=== PATIENT | male | born 1940 | race Hispanic/Latino ===

== ENCOUNTER 2018-04-22 14:18 | Emergency (ER) | payer MEDICARE ==
[~2018-04-22 14:18] MED LIST: ACID1TAB4 PO; AZAT50TA PO; CHLO25TA3 PO; CLOP75TA32 PO; DORZ10DR14 OD; DORZ10DR9 OD; FOLI0.8T43 PO; INSLAN SQ; INSU100I15 SQ; LOPE2TAB26 PO; METO50TA18 PO; OMEP40CA37 PO; PRAV20TA4 PO; SIME80TA10 PO; TACR1CAP10 PO; XALA2.5OS OD
[2018-04-22 14:27] LABS: BASOPHILS % (AUTO) 0.7 % (0.0-5.0); EOSINOPHILS % (AUTO) 0.3 % (0.0-8.0); HEMATOCRIT 37.5 % (42-54); LYMPHOCYTES % (AUTO) 6.6 % (21.0-51.0); MEAN CORPUSCULAR HGB CONC 34.2 g/dL (32.0-36.0); MEAN CORPUSCULAR VOLUME 87.6 fL (79-99); MONOCYTES % (AUTO) 9.4 % (3.0-13.0); NUCLEATED RED BLOOD CELLS 0.1 % (0.0-0.19); PLATELET COUNT (AUTO) 175 K/uL (130-400); RED BLOOD CELL COUNT(AUTO) 4.28 MIL/uL (4.50-6.20)
[2018-04-22 15:04] LABS: CREATININE 1.9 mg/dL (0.5-1.5); POTASSIUM 4.1 mmol/L (3.5-5.1)
[2018-04-22 15:11] LABS: ALBUMIN 3.4 g/dL (3.5-5.0); BILIRUBIN,TOTAL 0.4 mg/dL (0.2-1.0); TOTAL PROTEIN, SERUM 8.1 g/dL (6.0-8.3)
== END 2018-04-22 16:39 | disposition home or self-care (01) ==
LOC: EDH 14:18
DX: E87.5 Hyperkalemia (principal); I10 Essential (primary) hypertension; E78.5 Hyperlipidemia, unspecified; I25.810 Atherosclerosis of coronary artery bypass graft(s) without angina pectoris; E11.9 Type 2 diabetes mellitus without complications; Z94.0 Kidney transplant status; Z95.1 Presence of aortocoronary bypass graft
CPT/HCPCS: 36415; 80053; 85025; 93005

== ENCOUNTER → 2019-03-24 | Outpatient (CLI) | payer MEDICARE ==
[~2019-03-24] MED LIST changes: +CVS B12 PO; +FOLIC ACID PO; +FURO20TA4 PO; +INSU100C6 SQ; +INSU100V12 SQ; +MAGN250T10 PO; +OMEP40CA13 PO; -OMEP40CA37 PO; +RENAVITE PO; +ZENPEP DR PO
== END | disposition home or self-care (01) ==
LOC: SHCH 13:45
PROVIDERS: ATTEND Internal Medicine Cardiovascular Disease
DX: I73.9 Peripheral vascular disease, unspecified (principal); I87.2 Venous insufficiency (chronic) (peripheral)
CPT/HCPCS: 93925; 93970

== ENCOUNTER → 2019-06-21 | Outpatient (CLI) | payer MEDICARE ==
[~2019-06-21] MED LIST changes: -ACID1TAB4 PO; -CHLO25TA3 PO; -DORZ10DR14 OD; -DORZ10DR9 OD; -FOLI0.8T43 PO; -INSLAN SQ; -INSU100I15 SQ; -LOPE2TAB26 PO; -SIME80TA10 PO; -XALA2.5OS OD
== END | disposition home or self-care (01) ==
LOC: SHCH 09:30
PROVIDERS: ATTEND Internal Medicine Cardiovascular Disease
DX: I70.203 Unspecified atherosclerosis of native arteries of extremities, bilateral legs (principal)
CPT/HCPCS: 93925

== ENCOUNTER → 2019-10-18 | Outpatient (CLI) | payer MEDICARE | END | disposition home or self-care (01) | LOC: SHCH 07:53 | PROVIDERS: ATTEND Internal Medicine Cardiovascular Disease | DX: I73.9 Peripheral vascular disease, unspecified (principal) | CPT/HCPCS: 93925 ==

== ENCOUNTER 2019-10-31 06:14 | Day surgery (SDC) | payer MEDICARE ==
[~2019-10-31] VITALS: Ht 167.6 cm; Wt 73.1 kg
[2019-10-31] VITALS (20 sets, daily range): BP systolic 125–179; BP diastolic 56–78
[~2019-10-31 06:14] MED LIST changes: +ASPI-555 PO; +BRIM15OS OU; -CVS B12 PO; +DORZ10DR14 OU; -FURO20TA4 PO; +LATA7.5D OU; -MAGN250T10 PO; +PATI8.4P PO; -TACR1CAP10 PO; +TACR1GRA PO; +VITAMIN B12 PO; +VITAMIN D3 PO; -ZENPEP DR PO
[2019-10-31] MEDS ORDERED: SODIUM CHLORIDE 0.9% 1000ML 1,000 ML IV ONE (06:42)
[2019-10-31 06:49] LABS: BASOPHILS % (AUTO) 0.9 % (0.0-5.0); EOSINOPHILS % (AUTO) 0.4 % (0.0-8.0); HEMATOCRIT 35.7 % (42-54); LYMPHOCYTES % (AUTO) 12.5 % (21.0-51.0); MEAN CORPUSCULAR HEMOGLOBIN 28.3 pg (27.0-33.0); MEAN CORPUSCULAR HGB CONC 32.2 g/dL (32.0-36.0); MEAN CORPUSCULAR VOLUME 87.7 fL (79-99); MONOCYTES % (AUTO) 11.2 % (3.0-13.0); NEUTROPHILS % (AUTO) 74.8 % (40.0-77.0); PLATELET COUNT (AUTO) 168 K/uL (130-400); RED BLOOD CELL COUNT(AUTO) 4.07 MIL/uL (4.50-6.20); RED CELL DISTRIBUTION WIDTH 17.5 % (11.0-15.5); WHITE BLOOD COUNT (AUTO) 4.6 K/uL (4.8-10.8)
[2019-10-31 06:53] LABS: APPEARANCE,URINE Clear (CLEAR); BILIRUBIN,URINE Negative (NEGATIVE); COLOR,URINE Yellow (YELLOW); GLUCOSE, URINE (UA) Negative (NEGATIVE); KETONES,URINE Negative (NEGATIVE); LEUKOCYTE ESTERASE ,URINE Negative (NEGATIVE); NITRATE,URINE Negative (NEGATIVE); OCCULT BLOOD,URINE Negative (NEGATIVE); PROTEIN,URINE POS 1+ mg/dL (NEGATIVE)
[2019-10-31 07:06] LABS: CREATININE 1.7 mg/dL (0.5-1.5); POTASSIUM 4.9 mmol/L (3.5-5.1)
[2019-10-31 07:09] LABS: INR 0.92 (0.85-1.15)
[2019-10-31 07:19] LABS: BACTERIA,URINE Rare /HPF (None Seen); RBC,URINE 0-1 /HPF (0-1); SQUAMOUS EPITHELIAL CELL,UR Rare /HPF (0-2); WBC,URINE 0-1 /HPF (0-1)
[2019-10-31] MEDS ORDERED: FENTANYL CITRATE PF 50 MCG/1 ML 2ML VIAL ONE (07:49)
[2019-10-31] MEDS ORDERED: IODIXANOL 320 MG/ML 100 ML VIAL ONE (07:49)
[2019-10-31] MEDS ORDERED: HEPARIN SODIUM 1000UNIT/ML 10ML VIAL ONE (07:49)
[2019-10-31] MEDS ORDERED: NITROGLYCERIN 2 MG/VIAL VIAL IV ONE (07:49)
[2019-10-31] MEDS ORDERED: MIDAZOLAM HCL 1 MG/ML 2ML VIAL ONE (07:49)
[2019-10-31] MEDS ORDERED: LIDOCAINE HCL 2% 20ML ONE (07:50)
[2019-10-31] MEDS ORDERED: SODIUM CHLORIDE 0.9% 1000ML 1,000 ML IV SCH (09:28)
[2019-10-31] MEDS ORDERED: GLUCAGON 1MG KIT 1 MG ML IM PRN (09:30)
[2019-10-31] MEDS ORDERED: NITROGLYCERIN 0.4 MG SL TAB SL PRN (09:30)
[2019-10-31] MEDS ORDERED: DEXTROSE 50%-WATER 50 ML DISP.SYRIN IV PRN (09:30)
[2019-10-31] MEDS ORDERED: HYDRALAZINE HCL 20 MG/ML VIAL IV PRN (09:30)
[2019-10-31] MEDS ORDERED: METOPROLOL TARTRATE 1 MG/ML 5ML VIAL IV PRN (09:30)
[2019-10-31] MEDS ORDERED: ATROPINE SULFATE 0.1 MG/ML 10 ML SYG IVP ONE (11:15)
[2019-10-31] MEDS ORDERED: INSULIN HUMULIN R 100 UNIT/ML 3ML SQ SCH (11:30)
== END 2019-10-31 15:00 | disposition home or self-care (01) ==
LOC: DAH 06:14
PROVIDERS: ATTEND Internal Medicine Cardiovascular Disease
DX: I70.213 Atherosclerosis of native arteries of extremities with intermittent claudication, bilateral legs (principal); I25.10 Atherosclerotic heart disease of native coronary artery without angina pectoris; I10 Essential (primary) hypertension; E78.5 Hyperlipidemia, unspecified; E11.9 Type 2 diabetes mellitus without complications; Z95.1 Presence of aortocoronary bypass graft; Z94.0 Kidney transplant status; Z98.890 Other specified postprocedural states; Z79.4 Long term (current) use of insulin; Z79.82 Long term (current) use of aspirin; Z79.01 Long term (current) use of anticoagulants; Z79.899 Other long term (current) drug therapy
CPT/HCPCS: 36415; 37226; 71045; 75710; 80048; 81001; 82948 ×2; 85025; 85610; 85730; 93005; A4215; A4216; A4221; A4223 ×3; A4606; A4657; A4663; A6260; A6402; C1725; C1769 ×2; C1874; C1893; C1894 ×2; J0360; J1644 ×2; J2250; J3010; J3490 ×2; J7030; Q9967; 99156; 99157; J0461

== ENCOUNTER → 2020-08-14 | Outpatient (CLI) | payer MEDICARE ==
[~2020-08-14] MED LIST changes: -ASPI-555 PO; +ASPI-556 PO
== END | disposition home or self-care (01) ==
LOC: SHCH 12:23
PROVIDERS: ATTEND Internal Medicine Cardiovascular Disease
DX: I07.1 Rheumatic tricuspid insufficiency (principal); R55 Syncope and collapse; I20.9 Angina pectoris, unspecified; R06.09 Other forms of dyspnea; I73.9 Peripheral vascular disease, unspecified; I65.23 Occlusion and stenosis of bilateral carotid arteries; E78.5 Hyperlipidemia, unspecified; E11.9 Type 2 diabetes mellitus without complications
CPT/HCPCS: 93306; 93356; 93925

== ENCOUNTER 2020-09-13 05:47 | Day surgery (SDC) | payer MEDICARE ==
[2020-09-11 11:01] LABS: BASOPHILS % (AUTO) 0.9 % (0.0-5.0); EOSINOPHILS % (AUTO) 0.4 % (0.0-8.0); HEMATOCRIT 36.3 % (42-54); LYMPHOCYTES % (AUTO) 14.3 % (21.0-51.0); MEAN CORPUSCULAR HEMOGLOBIN 29.1 pg (27.0-33.0); MEAN CORPUSCULAR HGB CONC 33.1 g/dL (32.0-36.0); MEAN CORPUSCULAR VOLUME 88.1 fL (79-99); MONOCYTES % (AUTO) 11.3 % (3.0-13.0); NEUTROPHILS % (AUTO) 72.7 % (40.0-77.0); PLATELET COUNT (AUTO) 164 K/uL (130-400); RED BLOOD CELL COUNT(AUTO) 4.12 MIL/uL (4.50-6.20); WHITE BLOOD COUNT (AUTO) 4.7 K/uL (4.8-10.8)
[2020-09-11 11:16] LABS: CREATININE 1.6 mg/dL (0.5-1.5)
[2020-09-11 12:07] LABS: INR 1.01 (0.85-1.15)
[2020-09-11 12:09] LABS: PARTIAL THROMBOPLASTIN TIME 29.3 SEC (26.3-35.5)
[2020-09-11 12:13] VITALS: BP 150/70
[2020-09-13] VITALS (15 sets, daily range): BP systolic 142–181; BP diastolic 41–74
[~2020-09-13] VITALS: Ht 172.7 cm; Wt 71.7 kg
[~2020-09-13 05:47] MED LIST changes: -OMEP40CA13 PO; +OMEP40CA21 PO
[2020-09-13] MEDS ORDERED: 0.9%NACL 1000ML 1,000 ML IV ONE (06:59)
[2020-09-13] MEDS ORDERED: IODIXANOL 320 MG/ML 100 ML VIAL ONE (07:07)
[2020-09-13] MEDS ORDERED: NITROGLYCERIN 2 MG VIAL IV ONE (07:07)
[2020-09-13] MEDS ORDERED: LIDOCAINE HCL 400MG/20ML VIAL ONE (07:07)
[2020-09-13] MEDS ORDERED: HEPARIN 10,000 UNIT/10ML (1,000 UNIT/ML) VIAL ONE (07:07)
[2020-09-13] MEDS ORDERED: MIDAZOLAM HCL 1 MG/ML 2ML VIAL ONE (07:07)
[2020-09-13] MEDS ORDERED: FENTANYL CITRATE PF 50 MCG/1 ML 2ML VIAL ONE (07:07)
[2020-09-13] MEDS ORDERED: DEXTROSE 50%-WATER 50 ML DISP.SYRIN IV PRN (08:30)
[2020-09-13] MEDS ORDERED: NITROGLYCERIN 0.4 MG SL TAB SL PRN (08:30)
[2020-09-13] MEDS ORDERED: METOPROLOL TARTRATE 1 MG/ML 5ML VIAL IV PRN (08:30)
[2020-09-13] MEDS ORDERED: 0.9%NACL 1000ML 1,000 ML IV SCH (08:30)
[2020-09-13] MEDS ORDERED: HYDRALAZINE 20MG/ML VIAL IV PRN (08:30)
[2020-09-13] MEDS ORDERED: GLUCAGON 1MG KIT 1 MG ML IM PRN (08:30)
[2020-09-13] MEDS ORDERED: ATROPINE 1MG SYG IVP ONE (08:54)
[2020-09-13] MEDS ORDERED: INSULIN HUMULIN R 100 UNIT/ML 3ML SQ SCH (11:30)
== END 2020-09-13 13:45 | disposition home or self-care (01) ==
LOC: DAH 05:47 → DAHIP 05:47 → UNDOADMOB 05:47 → EDSTATUS 10:00 → DAH 13:45
PROVIDERS: ATTEND Internal Medicine Cardiovascular Disease
DX: I70.213 Atherosclerosis of native arteries of extremities with intermittent claudication, bilateral legs (principal); E11.51 Type 2 diabetes mellitus with diabetic peripheral angiopathy without gangrene; E11.22 Type 2 diabetes mellitus with diabetic chronic kidney disease; I12.9 Hypertensive chronic kidney disease with stage 1 through stage 4 chronic kidney disease, or unspecified chronic kidney disease; N18.4 Chronic kidney disease, stage 4 (severe); E11.59 Type 2 diabetes mellitus with other circulatory complications; I87.323 Chronic venous hypertension (idiopathic) with inflammation of bilateral lower extremity; E66.9 Obesity, unspecified; I25.10 Atherosclerotic heart disease of native coronary artery without angina pectoris; E78.5 Hyperlipidemia, unspecified; Z79.899 Other long term (current) drug therapy; Z79.01 Long term (current) use of anticoagulants; Z79.82 Long term (current) use of aspirin; Z79.4 Long term (current) use of insulin; Z98.49 Cataract extraction status, unspecified eye; Z95.5 Presence of coronary angioplasty implant and graft; Z68.24 Body mass index [BMI] 24.0-24.9, adult
CPT/HCPCS: 36247; 36415; 71045; 75716; 80048; 82948 ×2; 85025; 85610; 85730; 93005; A4215; A4216; A4221; A4222; A4223 ×3; A4606; A4663; C1769; C1894 ×2; J1644; J2250; J3010; J3490 ×2; J7030; Q9967; 99156; 99157; J0461

== ENCOUNTER → 2020-12-25 | Outpatient (CLI) | payer MEDICARE ==
[~2020-12-25] MED LIST changes: -INSU100C6 SQ; -PATI8.4P PO
== END | disposition home or self-care (01) ==
LOC: SHCH 08:26
PROVIDERS: ATTEND Internal Medicine Cardiovascular Disease
DX: I70.293 Other atherosclerosis of native arteries of extremities, bilateral legs (principal)
CPT/HCPCS: 93925

== ENCOUNTER 2022-04-30 12:53 | Inpatient (IN) | payer MEDICARE ==
[~2022-04-30] VITALS: Ht 167.6 cm; Wt 72.2 kg
[2022-04-30 13:14] LABS: HEMATOCRIT 32.5 % (42-54); MEAN CORPUSCULAR HEMOGLOBIN 28.8 pg (27.0-33.0); MEAN CORPUSCULAR HGB CONC 33.5 g/dL (32.0-36.0); MONOCYTES % (AUTO) 10.8 % (3.0-13.0); NEUTROPHILS % (AUTO) 76.8 % (40.0-77.0); PLATELET COUNT (AUTO) 196 K/uL (130-400); RED BLOOD CELL COUNT(AUTO) 3.78 MIL/uL (4.50-6.20); RED CELL DISTRIBUTION WIDTH 16.3 % (11.0-15.5)
[2022-04-30 13:22] LABS: CREATININE 2.4 mg/dL (0.5-1.5); POTASSIUM 4.8 mmol/L (3.5-5.1)
[2022-04-30 13:26] LABS: ALBUMIN 2.5 g/dL (3.5-5.0); TOTAL PROTEIN, SERUM 7.1 g/dL (6.0-8.3)
[2022-04-30 13:42] LABS: B-TYPE NATRIURETIC PEPTIDE 618 pg/mL (0-100)
[2022-04-30] MEDS ORDERED: FUROSEMIDE 40MG VIAL IV ONE (14:00)
[2022-04-30] MEDS ORDERED: LACTULOSE 20 GM/30 ML UDCUP PO PRN (20:30)
[2022-04-30] MEDS ORDERED: GUAIFENESIN-DM 200/20 MG 10 ML PO PRN (20:30)
[2022-04-30] MEDS ORDERED: DiphenhydrAMINE HCL 50 MG/ML VIAL IV PRN (20:30)
[2022-04-30] MEDS ORDERED: LIDOCAINE HCL-MPF 1% 2ML VIAL IV PRN (20:30)
[2022-04-30] MEDS ORDERED: DEXTROSE 50%-WATER 50 ML DISP.SYRIN IV PRN (20:30)
[2022-04-30] MEDS ORDERED: MAGNESIUM 2GM PREMIX 50ML 50 ML IV PRN (20:30)
[2022-04-30] MEDS ORDERED: ACETAMINOPHEN 325 MG TAB PO PRN ×2 (20:30)
[2022-04-30] MEDS ORDERED: KCL 20 MEQ ERTAB PO PRN (20:30)
[2022-04-30] MEDS ORDERED: GLUCAGON 1MG KIT 1 MG ML IM PRN (20:30)
[2022-04-30] MEDS ORDERED: MAG/ALUM/SIMETH 30 ML UDCUP PO PRN (20:30)
[2022-04-30] MEDS ORDERED: POTASSIUM CHLORIDE 10% ELIXIR 20 MEQ/15 ML UDCUP PO PRN (20:30)
[2022-04-30] MEDS ORDERED: POTASSIUM CHLORIDE 20MEQ/100ML 100 ML IV PRN (20:30)
[2022-04-30] MEDS ORDERED: ONDANSETRON 4MG INJ IV PRN (20:30)
[2022-04-30] MEDS ORDERED: NITROGLYCERIN 0.4 MG SL TAB SL PRN (20:30)
[2022-04-30] MEDS ORDERED: DIPHENHYDRAMINE HCL 25 MG CAPSULE PO PRN (20:30)
[2022-04-30] MEDS ORDERED: HEPARIN 5,000 UNIT VIAL SQ SCH (21:00)
[2022-04-30] MEDS: FAMOTIDINE 20MG TAB PO SCH (21:40)
[2022-04-30] MEDS: FUROSEMIDE 40MG VIAL IV SCH (21:40)
[2022-04-30] MEDS: ATORVASTATIN 40 MG TABLET PO SCH (21:40)
[2022-04-30] MEDS: INSULIN HUMULIN R 100 UNIT/ML 3ML SQ SCH (21:52)
[2022-04-30] MEDS ORDERED: AMLO-257 PO (23:38)
[2022-04-30] MEDS ORDERED: MAGN250T35 PO (23:38)
[2022-04-30 23:55] LABS: APPEARANCE,URINE CLEAR (CLEAR); BILIRUBIN,URINE NEGATIVE (NEGATIVE); COLOR,URINE COLORLESS (YELLOW); GLUCOSE, URINE (UA) 50 mg/dL (NEGATIVE); KETONES,URINE NEGATIVE (NEGATIVE); LEUKOCYTE ESTERASE ,URINE NEGATIVE Leu/uL (NEGATIVE); NITRATE,URINE NEGATIVE (NEGATIVE); PROTEIN,URINE 100 mg/dL (NEGATIVE); UROBILINOGEN,URINE 0.2 mg/dL (0.2-1.0)
[2022-05-01 00:08] LABS: MUCUS,URINE RARE LPF (None Seen); SQUAMOUS EPITHELIAL CELL,UR FEW /HPF (0-2); WBC,URINE 0-1 /HPF (0-1)
[2022-05-01 01:05] VITALS: BP 171/79
[2022-05-01 04:37] LABS: BASOPHILS % (AUTO) 1.3 % (0.0-5.0); EOSINOPHILS % (AUTO) 1.1 % (0.0-8.0); HEMATOCRIT 29.8 % (42-54); MEAN CORPUSCULAR HEMOGLOBIN 29.1 pg (27.0-33.0); MEAN CORPUSCULAR HGB CONC 34.9 g/dL (32.0-36.0); MEAN CORPUSCULAR VOLUME 83.5 fL (79-99); NEUTROPHILS % (AUTO) 70.4 % (40.0-77.0); PLATELET COUNT (AUTO) 172 K/uL (130-400); RED BLOOD CELL COUNT(AUTO) 3.57 MIL/uL (4.50-6.20); RED CELL DISTRIBUTION WIDTH 15.8 % (11.0-15.5); WHITE BLOOD COUNT (AUTO) 5.4 K/uL (4.8-10.8)
[2022-05-01 05:02] VITALS: BP 177/81
[2022-05-01 05:23] LABS: CREATININE 2.6 mg/dL (0.5-1.5); MAGNESIUM 1.7 mg/dL (1.80-2.40); PHOSPHORUS 3.5 mg/dL (2.5-4.9); POTASSIUM 4.1 mmol/L (3.5-5.1)
[2022-05-01 05:24] LABS: B-TYPE NATRIURETIC PEPTIDE 696 pg/mL (0-100)
[2022-05-01] MEDS: INSULIN HUMULIN R 100 UNIT/ML 3ML SQ SCH ×4 (05:45→20:26)
[2022-05-01 08:00] VITALS: BP 173/73
[2022-05-01] MEDS ORDERED: FAMOTIDINE 20MG VIAL IV SCH (09:00)
[2022-05-01] MEDS: FAMOTIDINE 20MG TAB PO SCH (09:49)
[2022-05-01] MEDS: ASPIRIN 81MG CHEW TAB PO SCH (09:49)
[2022-05-01] MEDS: FUROSEMIDE 40MG VIAL IV SCH ×2 (09:49→18:37)
[2022-05-01] MEDS: FOLIC ACID 1 MG TABLET PO SCH (11:10)
[2022-05-01] MEDS: AZATHIOPRINE 50 MG TAB PO SCH (11:30)
[2022-05-01] MEDS: TACROLIMUS 1 MG CAPSULE PO SCH ×2 (11:49→20:27)
[2022-05-01] MEDS: METOPROLOL TARTRATE 50 MG TAB PO SCH ×2 (11:50→20:27)
[2022-05-01] MEDS: AMLODIPINE 5 MG TAB PO SCH (11:50)
[2022-05-01 12:00] VITALS: BP 162/68
[2022-05-01] MEDS: HEPARIN 5,000 UNIT VIAL SQ SCH ×2 (14:58→22:18)
[2022-05-01 16:00] VITALS: BP 152/54
[2022-05-01] MEDS ORDERED: ACETAMINOPHEN WITH CODEINE 1 TAB TAB PO PRN (16:30)
[2022-05-01 20:00] VITALS: BP 146/51
[2022-05-01] MEDS: LATANOPROST 2.5 ML DROPS OU SCH (20:27)
[2022-05-01] MEDS: BRIMONIDINE TARTRATE OU SCH (20:27)
[2022-05-01] MEDS: ATORVASTATIN 40 MG TABLET PO SCH (20:27)
[2022-05-01] MEDS ORDERED: METOPROLOL TARTRATE 50 MG TAB PO SCH (21:00)
[2022-05-02] VITALS: BP 105/53
[2022-05-02 04:00] VITALS: BP 142/56
[2022-05-02 04:56] LABS: BASOPHILS % (AUTO) 1.6 % (0.0-5.0); EOSINOPHILS % (AUTO) 1.9 % (0.0-8.0); HEMATOCRIT 27.5 % (42-54); LYMPHOCYTES % (AUTO) 19.5 % (21.0-51.0); MEAN CORPUSCULAR HEMOGLOBIN 29.2 pg (27.0-33.0); MEAN CORPUSCULAR HGB CONC 34.2 g/dL (32.0-36.0); MEAN CORPUSCULAR VOLUME 85.4 fL (79-99); MONOCYTES % (AUTO) 14.8 % (3.0-13.0); NEUTROPHILS % (AUTO) 61.7 % (40.0-77.0); PLATELET COUNT (AUTO) 152 K/uL (130-400); RED BLOOD CELL COUNT(AUTO) 3.22 MIL/uL (4.50-6.20); RED CELL DISTRIBUTION WIDTH 16.2 % (11.0-15.5); WHITE BLOOD COUNT (AUTO) 4.3 K/uL (4.8-10.8)
[2022-05-02 05:19] LABS: ALBUMIN 2.1 g/dL (3.5-5.0); CREATININE 2.8 mg/dL (0.5-1.5); MAGNESIUM 1.8 mg/dL (1.80-2.40); POTASSIUM 4.3 mmol/L (3.5-5.1); TOTAL PROTEIN, SERUM 6.1 g/dL (6.0-8.3)
[2022-05-02] MEDS: INSULIN HUMULIN R 100 UNIT/ML 3ML SQ SCH ×4 (05:29→21:00)
[2022-05-02 05:31] LABS: B-TYPE NATRIURETIC PEPTIDE 169 pg/mL (0-100)
[2022-05-02] MEDS: FUROSEMIDE 40MG VIAL IV SCH (06:00)
[2022-05-02] MEDS: HEPARIN 5,000 UNIT VIAL SQ SCH ×3 (06:41→21:10)
[2022-05-02 07:30] VITALS: BP 132/47
[2022-05-02] MEDS: METOPROLOL TARTRATE 50 MG TAB PO SCH ×2 (09:00→21:10)
[2022-05-02] MEDS ORDERED: Vitamin B Complex/Vit C/Folic Acid PO SCH (09:00)
[2022-05-02] MEDS ORDERED: CLOPIDOGREL 75MG TAB PO SCH (09:00)
[2022-05-02] MEDS ORDERED: REGADENOSON 0.4 MG/5 ML PF SYG IVP SCH (09:00)
[2022-05-02] MEDS ORDERED: AZATHIOPRINE 50 MG TAB PO SCH (09:00)
[2022-05-02] MEDS ORDERED: CYANOCOBALAMIN (VITAMIN B-12) 1,000 MCG TABLET PO SCH (09:00)
[2022-05-02] MEDS ORDERED: VIT D 2000 UNIT PO SCH (09:00)
[2022-05-02] MEDS ORDERED: INSULIN GLARGINE 100 UNITS/ML 10 ML VIAL SQ SCH (09:00)
[2022-05-02] MEDS: BRIMONIDINE TARTRATE OU SCH ×2 (09:00→21:15)
[2022-05-02 12:03] VITALS: BP 145/42
[2022-05-02] MEDS: FAMOTIDINE 20MG TAB PO SCH (13:45)
[2022-05-02] MEDS: AZATHIOPRINE 50 MG TAB PO SCH (13:45)
[2022-05-02] MEDS: ASPIRIN 81MG CHEW TAB PO SCH (13:45)
[2022-05-02] MEDS: FOLIC ACID 1 MG TABLET PO SCH (13:46)
[2022-05-02] MEDS: TACROLIMUS 1 MG CAPSULE PO SCH ×2 (13:46→21:10)
[2022-05-02] MEDS: AMLODIPINE 5 MG TAB PO SCH (13:47)
[2022-05-02 15:50] VITALS: BP 178/72
[2022-05-02 20:00] VITALS: BP 152/67
[2022-05-02] MEDS: ATORVASTATIN 40 MG TABLET PO SCH (21:10)
[2022-05-02] MEDS: LATANOPROST 2.5 ML DROPS OU SCH (21:15)
== END 2022-05-02 21:45 | disposition home or self-care (01) | DRG 291 ==
LOC: EDH 12:53 → EDHIP 20:15 → 4DH 05-01 01:11 → 4AH 05-02 16:05
PROVIDERS: ADMIT Hospitalist; ATTEND Hospitalist
DX: I13.0 Hypertensive heart and chronic kidney disease with heart failure and stage 1 through stage 4 chronic kidney disease, or unspecified chronic kidney disease (principal); I50.33 Acute on chronic diastolic (congestive) heart failure; J96.01 Acute respiratory failure with hypoxia; N17.9 Acute kidney failure, unspecified; N18.4 Chronic kidney disease, stage 4 (severe); D84.821 Immunodeficiency due to drugs; E87.1 Hypo-osmolality and hyponatremia; T86.19 Other complication of kidney transplant; I25.10 Atherosclerotic heart disease of native coronary artery without angina pectoris; D63.1 Anemia in chronic kidney disease; E11.22 Type 2 diabetes mellitus with diabetic chronic kidney disease; E11.51 Type 2 diabetes mellitus with diabetic peripheral angiopathy without gangrene; E78.00 Pure hypercholesterolemia, unspecified; Z95.1 Presence of aortocoronary bypass graft; Z79.60 Long term (current) use of unspecified immunomodulators and immunosuppressants; Z79.82 Long term (current) use of aspirin; Z80.9 Family history of malignant neoplasm, unspecified; Z82.49 Family history of ischemic heart disease and other diseases of the circulatory system; Z83.3 Family history of diabetes mellitus; Z87.891 Personal history of nicotine dependence
CPT/HCPCS: 36415; 71045; 78452; 80048; 80053; 81001; 82948; 83735; 83880; 84100; 84484; 85025; 93005; 93017; 93306; 93356; 93970; 96374; 97039; A9500; G0378; J1644; J1815; J1940; J2785; J3475; J7500; J7507

== ENCOUNTER 2022-07-23 09:13 | Observation (INO) | payer OTHER, MEDICARE ==
[~2022-07-23] VITALS: Ht 170.2 cm; Wt 71.8 kg
[~2022-07-23 09:13] MED LIST changes: +AMLO-257 PO; +MAGN250T35 PO
[2022-07-23 09:53] LABS: HEMATOCRIT 27.4 % (42-54); LYMPHOCYTES % (AUTO) 8.6 % (21.0-51.0); MEAN CORPUSCULAR HEMOGLOBIN 28.7 pg (27.0-33.0); MEAN CORPUSCULAR HGB CONC 33.2 g/dL (32.0-36.0); MEAN CORPUSCULAR VOLUME 86.4 fL (79-99); MONOCYTES % (AUTO) 11.8 % (3.0-13.0); PLATELET COUNT (AUTO) 167 K/uL (130-400); RED BLOOD CELL COUNT(AUTO) 3.17 MIL/uL (4.50-6.20); RED CELL DISTRIBUTION WIDTH 16.8 % (11.0-15.5)
[2022-07-23 10:04] LABS: CREATININE 2.6 mg/dL (0.5-1.5); POTASSIUM 3.8 mmol/L (3.5-5.1)
[2022-07-23 10:08] LABS: ALBUMIN 2.3 g/dL (3.5-5.0); TOTAL PROTEIN, SERUM 6.1 g/dL (6.0-8.3)
[2022-07-23] MEDS ORDERED: FUROSEMIDE 40MG VIAL ONE (11:37)
[2022-07-23] MEDS: FUROSEMIDE 40MG VIAL IV SCH (13:00)
[2022-07-23] MEDS ORDERED: ONDANSETRON 4MG INJ IVP PRN (13:30)
[2022-07-23] MEDS ORDERED: ACETAMINOPHEN 325 MG TAB PO PRN (13:30)
[2022-07-23] MEDS ORDERED: HYDRALAZINE 20MG/ML VIAL IV PRN (13:30)
[2022-07-23] MEDS ORDERED: FURO20TA4 PO (14:00)
[2022-07-23] MEDS ORDERED: DOXA4TAB3 PO (14:00)
[2022-07-23] MEDS ORDERED: ERGO400T7 PO (14:04)
[2022-07-23] MEDS ORDERED: FOLI0.8T43 PO (14:04)
[2022-07-23] MEDS ORDERED: MAGN250C PO (14:04)
[2022-07-23] MEDS ORDERED: CYAN250014 PO (14:04)
[2022-07-23 14:46] LABS: APPEARANCE,URINE CLEAR (CLEAR); BILIRUBIN,URINE NEGATIVE (NEGATIVE); COLOR,URINE LIGHT-YELLOW (YELLOW); GLUCOSE, URINE (UA) NEGATIVE (NEGATIVE); KETONES,URINE NEGATIVE (NEGATIVE); LEUKOCYTE ESTERASE ,URINE NEGATIVE Leu/uL (NEGATIVE); NITRATE,URINE NEGATIVE (NEGATIVE); OCCULT BLOOD,URINE NEGATIVE (NEGATIVE); PROTEIN,URINE 200 mg/dL (NEGATIVE); UROBILINOGEN,URINE 0.2 mg/dL (0.2-1.0)
[2022-07-23] MEDS: HEPARIN 5,000 UNIT VIAL SQ SCH (15:29)
[2022-07-23] MEDS: DOXAZOSIN MESYLATE 2 MG TABLET PO SCH (15:30)
[2022-07-23 16:44] LABS: WBC,URINE 0-1 /HPF (0-1)
[2022-07-23] MEDS: TACROLIMUS 1 MG CAPSULE PO SCH (21:09)
[2022-07-23] MEDS: METOPROLOL TARTRATE 50 MG TAB PO SCH (21:09)
[2022-07-23 21:40] VITALS: BP 163/80
[2022-07-23 23:40] VITALS: BP 155/76
[2022-07-24] MEDS: FUROSEMIDE 40MG VIAL IV SCH ×2 (02:03→12:57)
[2022-07-24] MEDS: HEPARIN 5,000 UNIT VIAL SQ SCH ×2 (02:04→12:56)
[2022-07-24 04:08] VITALS: BP 141/68
[2022-07-24 04:29] LABS: BASOPHILS % (AUTO) 1.4 % (0.0-5.0); EOSINOPHILS % (AUTO) 1.9 % (0.0-8.0); HEMATOCRIT 24.6 % (42-54); LYMPHOCYTES % (AUTO) 11.4 % (21.0-51.0); MEAN CORPUSCULAR HGB CONC 34.1 g/dL (32.0-36.0); MEAN CORPUSCULAR VOLUME 84.8 fL (79-99); MONOCYTES % (AUTO) 11.9 % (3.0-13.0); NEUTROPHILS % (AUTO) 72.7 % (40.0-77.0); PLATELET COUNT (AUTO) 154 K/uL (130-400); RED CELL DISTRIBUTION WIDTH 16.9 % (11.0-15.5); WHITE BLOOD COUNT (AUTO) 4.3 K/uL (4.8-10.8)
[2022-07-24 04:47] LABS: CREATININE 2.5 mg/dL (0.5-1.5); MAGNESIUM 1.8 mg/dL (1.80-2.40); POTASSIUM 3.7 mmol/L (3.5-5.1); TOTAL PROTEIN, SERUM 5.5 g/dL (6.0-8.3)
[2022-07-24 05:07] LABS: B-TYPE NATRIURETIC PEPTIDE 881 pg/mL (0-100)
[2022-07-24 08:00] VITALS: BP 142/69
[2022-07-24] MEDS ORDERED: FUROSEMIDE 40MG VIAL IV SCH (09:00)
[2022-07-24] MEDS: METOPROLOL TARTRATE 50 MG TAB PO SCH ×2 (09:34→20:43)
[2022-07-24] MEDS: ASPIRIN 81 MG EC TAB PO SCH (09:34)
[2022-07-24] MEDS: AMLODIPINE 5 MG TAB PO SCH (09:34)
[2022-07-24] MEDS: CLOPIDOGREL 75MG TAB PO SCH (09:34)
[2022-07-24] MEDS: AZATHIOPRINE 50 MG TAB PO SCH (09:34)
[2022-07-24] MEDS: FAMOTIDINE 20MG TAB PO SCH (09:35)
[2022-07-24] MEDS: DOXAZOSIN MESYLATE 2 MG TABLET PO SCH (09:35)
[2022-07-24] MEDS: TACROLIMUS 1 MG CAPSULE PO SCH ×2 (09:35→20:44)
[2022-07-24 16:00] VITALS: BP 151/54
[2022-07-24] MEDS ORDERED: GLUCAGON 1MG KIT 1 MG ML IM PRN (16:30)
[2022-07-24] MEDS ORDERED: DEXTROSE 50%-WATER 50 ML DISP.SYRIN IV PRN (16:30)
[2022-07-24] MEDS: INSULIN HUMULIN R 100 UNIT/ML 3ML SQ SCH ×2 (16:34→20:53)
[2022-07-24 20:00] VITALS: BP 118/50
[2022-07-25] VITALS: BP 144/73
[2022-07-25] MEDS: FUROSEMIDE 40MG VIAL IV SCH ×2 (01:55→12:27)
[2022-07-25] MEDS: HEPARIN 5,000 UNIT VIAL SQ SCH ×2 (01:55→12:30)
[2022-07-25 03:55] VITALS: BP 146/70
[2022-07-25 05:00] LABS: BASOPHILS % (AUTO) 1.2 % (0.0-5.0); HEMATOCRIT 24.6 % (42-54); LYMPHOCYTES % (AUTO) 15.2 % (21.0-51.0); MEAN CORPUSCULAR HEMOGLOBIN 29.1 pg (27.0-33.0); MEAN CORPUSCULAR HGB CONC 34.6 g/dL (32.0-36.0); MEAN CORPUSCULAR VOLUME 84.2 fL (79-99); MONOCYTES % (AUTO) 13.7 % (3.0-13.0); NEUTROPHILS % (AUTO) 67.4 % (40.0-77.0); PLATELET COUNT (AUTO) 149 K/uL (130-400); RED BLOOD CELL COUNT(AUTO) 2.92 MIL/uL (4.50-6.20); WHITE BLOOD COUNT (AUTO) 4.1 K/uL (4.8-10.8)
[2022-07-25 05:38] LABS: ALBUMIN 2.1 g/dL (3.5-5.0); CREATININE 2.6 mg/dL (0.5-1.5); MAGNESIUM 1.6 mg/dL (1.80-2.40); POTASSIUM 3.5 mmol/L (3.5-5.1); TOTAL PROTEIN, SERUM 5.6 g/dL (6.0-8.3)
[2022-07-25 05:45] LABS: B-TYPE NATRIURETIC PEPTIDE 611 pg/mL (0-100)
[2022-07-25] MEDS: INSULIN HUMULIN R 100 UNIT/ML 3ML SQ SCH ×3 (06:51→17:10)
[2022-07-25 08:00] VITALS: BP 147/67
[2022-07-25] MEDS: ASPIRIN 81 MG EC TAB PO SCH (08:32)
[2022-07-25] MEDS: TACROLIMUS 1 MG CAPSULE PO SCH (08:32)
[2022-07-25] MEDS: METOPROLOL TARTRATE 50 MG TAB PO SCH (08:32)
[2022-07-25] MEDS: FAMOTIDINE 20MG TAB PO SCH (08:32)
[2022-07-25] MEDS: DOXAZOSIN MESYLATE 2 MG TABLET PO SCH (08:32)
[2022-07-25] MEDS: CLOPIDOGREL 75MG TAB PO SCH (08:32)
[2022-07-25] MEDS: AZATHIOPRINE 50 MG TAB PO SCH (08:32)
[2022-07-25] MEDS: AMLODIPINE 5 MG TAB PO SCH (08:33)
[2022-07-25 12:00] VITALS: BP 109/50
[2022-07-25] MEDS ORDERED: FURO40TA7 PO (16:11)
== END 2022-07-25 18:10 | disposition home or self-care (01) ==
LOC: EDH 09:13 → UNDOADMOB 12:41 → EDHIP 12:41 → INTOOBSV 18:47 → OBSVTOIN 18:47 → 4AH 20:33
PROVIDERS: ADMIT Hospitalist; ATTEND Hospitalist
DX: J96.01 Acute respiratory failure with hypoxia (principal); E87.70 Fluid overload, unspecified; I11.0 Hypertensive heart disease with heart failure; I50.33 Acute on chronic diastolic (congestive) heart failure; E11.9 Type 2 diabetes mellitus without complications; D64.9 Anemia, unspecified; N17.9 Acute kidney failure, unspecified; I25.10 Atherosclerotic heart disease of native coronary artery without angina pectoris; E43 Unspecified severe protein-calorie malnutrition; E78.00 Pure hypercholesterolemia, unspecified; I45.10 Unspecified right bundle-branch block; I87.1 Compression of vein; Z68.24 Body mass index [BMI] 24.0-24.9, adult; Z79.02 Long term (current) use of antithrombotics/antiplatelets; Z79.624 Long term (current) use of inhibitors of nucleotide synthesis; Z79.82 Long term (current) use of aspirin; Z79.899 Other long term (current) drug therapy; Z87.891 Personal history of nicotine dependence; Z95.1 Presence of aortocoronary bypass graft; Z79.4 Long term (current) use of insulin; T86.19 Other complication of kidney transplant; Y83.0 Surgical operation with transplant of whole organ as the cause of abnormal reaction of the patient, or of later complication, without mention of misadventure at the time of the procedure
CPT/HCPCS: 96374; 96372 ×3; 96375; 99285; 80053 ×3; 83880 ×3; 85025 ×3; 81001; 36415 ×3; 71045; 93005; 94760 ×2; 96376 ×2; 83735 ×2; 82948 ×7; J0360; J1644 ×5; J7507 ×4; J1940 ×5; J1815 ×3; J7500 ×2; G0378 ×5

== ENCOUNTER 2022-09-25 17:06 | Emergency (ER) | payer OTHER, MEDICARE ==
[~2022-09-25] VITALS: Ht 172.7 cm; Wt 70.8 kg
[~2022-09-25 17:06] MED LIST changes: +CYAN250014 PO; -DORZ10DR14 OU; +DORZ10DR32 OU; +DOXA4TAB3 PO; +ERGO400T7 PO; +FOLI0.8T43 PO; +FURO40TA7 PO; +MAGN250C PO
[2022-09-25] MEDS ORDERED: ACETAMINOPHEN 500 MG TABLET PO ONE (20:00)
[2022-09-25] MEDS ORDERED: KETOROLAC 15MG/ML VIAL (15MG/ML) IV ONE (20:00)
[2022-09-25] MEDS ORDERED: NIFEDIPINE 10 MG CAP PO ONE (21:00)
[2022-09-25] MEDS ORDERED: IBUP-2070 PO (21:13)
[2022-09-25] MEDS ORDERED: ACET-2079 PO (21:13)
[2022-09-25 21:29] VITALS: BP 168/74
== END 2022-09-25 21:30 | disposition home or self-care (01) ==
LOC: EDH 17:06
DX: S42.002A Fracture of unspecified part of left clavicle, initial encounter for closed fracture (principal); I11.0 Hypertensive heart disease with heart failure; I50.9 Heart failure, unspecified; E11.9 Type 2 diabetes mellitus without complications; E78.00 Pure hypercholesterolemia, unspecified; Z79.01 Long term (current) use of anticoagulants; Z79.1 Long term (current) use of non-steroidal anti-inflammatories (NSAID); Z79.4 Long term (current) use of insulin; Z79.82 Long term (current) use of aspirin; Z79.899 Other long term (current) drug therapy; Z95.1 Presence of aortocoronary bypass graft; W01.10XA Fall on same level from slipping, tripping and stumbling with subsequent striking against unspecified object, initial encounter; Y93.89 Activity, other specified; Y92.89 Other specified places as the place of occurrence of the external cause; Y99.8 Other external cause status
CPT/HCPCS: 99285; 70450; 96374; 71045; 73000; 72125; J1885

== ENCOUNTER 2022-10-17 14:17 | Emergency (ER) | payer OTHER, MEDICARE ==
[~2022-10-17] VITALS: Ht 175.3 cm; Wt 79.4 kg
[~2022-10-17 14:17] MED LIST changes: +ACET-2079 PO; +IBUP-2070 PO
[2022-10-17] MEDS ORDERED: 0.9%NACL 1000ML 1,000 ML IV SCH (15:00)
[2022-10-17 15:23] LABS: BASOPHILS % (AUTO) 1.1 % (0.0-5.0); EOSINOPHILS % (AUTO) 1.3 % (0.0-8.0); HEMATOCRIT 28.3 % (42-54); LYMPHOCYTES % (AUTO) 9.5 % (21.0-51.0); MEAN CORPUSCULAR HEMOGLOBIN 30.8 pg (27.0-33.0); MEAN CORPUSCULAR HGB CONC 33.9 g/dL (32.0-36.0); MEAN CORPUSCULAR VOLUME 90.7 fL (79-99); MONOCYTES % (AUTO) 13.2 % (3.0-13.0); NEUTROPHILS % (AUTO) 74.5 % (40.0-77.0); PLATELET COUNT (AUTO) 181 K/uL (130-400); RED BLOOD CELL COUNT(AUTO) 3.12 MIL/uL (4.50-6.20); RED CELL DISTRIBUTION WIDTH 17.6 % (11.0-15.5); WHITE BLOOD COUNT (AUTO) 4.6 K/uL (4.8-10.8)
[2022-10-17 15:42] LABS: CREATININE 2.9 mg/dL (0.5-1.5); POTASSIUM 4.2 mmol/L (3.5-5.1)
[2022-10-17 15:53] LABS: ALBUMIN 2.6 g/dL (3.5-5.0); MAGNESIUM 1.7 mg/dL (1.80-2.40); TOTAL PROTEIN, SERUM 6.2 g/dL (6.0-8.3)
[2022-10-17 16:25] LABS: APPEARANCE,URINE CLEAR (CLEAR); BILIRUBIN,URINE NEGATIVE (NEGATIVE); COLOR,URINE LIGHT-YELLOW (YELLOW); GLUCOSE, URINE (UA) NEGATIVE (NEGATIVE); KETONES,URINE NEGATIVE (NEGATIVE); LEUKOCYTE ESTERASE ,URINE NEGATIVE Leu/uL (NEGATIVE); NITRATE,URINE NEGATIVE (NEGATIVE); OCCULT BLOOD,URINE NEGATIVE (NEGATIVE); PROTEIN,URINE 100 mg/dL (NEGATIVE); UROBILINOGEN,URINE 0.2 mg/dL (0.2-1.0)
[2022-10-17 16:47] LABS: RBC,URINE 0-1 /HPF (0-1); WBC,URINE 0-1 /HPF (0-1)
[2022-10-17 16:48] LABS: BACTERIA,URINE None Seen /HPF (None Seen); SQUAMOUS EPITHELIAL CELL,UR Rare /HPF (0-2)
[2022-10-17] MEDS ORDERED: METOPROLOL TARTRATE 50 MG TAB PO SCH (17:30)
[2022-10-17 18:09] VITALS: BP 180/70
== END 2022-10-17 18:12 | disposition home or self-care (01) ==
LOC: EDH 14:17
DX: F03.90 Unspecified dementia, unspecified severity, without behavioral disturbance, psychotic disturbance, mood disturbance, and anxiety (principal); I11.0 Hypertensive heart disease with heart failure; I50.9 Heart failure, unspecified; E11.9 Type 2 diabetes mellitus without complications; E78.00 Pure hypercholesterolemia, unspecified; Z20.822 Contact with and (suspected) exposure to COVID-19; Z79.82 Long term (current) use of aspirin; Z79.899 Other long term (current) drug therapy; Z98.890 Other specified postprocedural states
CPT/HCPCS: 99285; 70450; 71045; 87635; 83735; 84484; 80053; 85025; 87804 ×2; 81001; 36415; 93005; 81003; C9803; J7030

== ENCOUNTER → 2023-03-28 | Outpatient (CLI) | payer OTHER, MEDICARE | END | disposition home or self-care (01) | LOC: SHCH 14:52 | PROVIDERS: ATTEND Internal Medicine Cardiovascular Disease | DX: I87.2 Venous insufficiency (chronic) (peripheral) (principal); I87.1 Compression of vein; I73.9 Peripheral vascular disease, unspecified | CPT/HCPCS: 93925; 93970 ==